=== PATIENT | female | born 1970 | race Caucasian/White ===

== ENCOUNTER 2017-11-12 17:21 | Emergency (ER) | payer OTHER ==
[~2017-11-12] VITALS: Ht 160 cm; Wt 56.7 kg
[2017-11-12] MEDS ORDERED: LASIX20 MG (17:28)
[2017-11-12] MEDS ORDERED: HYZAAR 50-12.51 EACH (17:28)
== END 2017-11-12 19:36 | disposition home or self-care (01) ==
LOC: ER 17:21
DX: T78.49XA Other allergy, initial encounter (principal); R21 Rash and other nonspecific skin eruption

== ENCOUNTER 2020-03-31 08:48 | Outpatient (CLI) | payer OTHER ==
[~2020-03-31 08:48] MED LIST: HYZAAR 50-12.51 EACH; LASIX20 MG
== END 2020-03-31 09:37 | disposition home or self-care (01) ==
LOC: SONOGRAMA 08:48
PROVIDERS: ATTEND Pathology Anatomic Pathology & Clinical Pathology
DX: E04.1 Nontoxic single thyroid nodule (principal)

== ENCOUNTER 2022-12-29 09:04 | Emergency (ER) | payer OTHER ==
[~2022-12-29] VITALS: Ht 160 cm; Wt 55.8 kg
== END 2022-12-29 09:59 | disposition home or self-care (01) ==
LOC: ER 09:04
DX: S90.122A Contusion of left lesser toe(s) without damage to nail, initial encounter (principal); X58.XXXA Exposure to other specified factors, initial encounter; Y93.89 Activity, other specified; Y92.832 Beach as the place of occurrence of the external cause; Y99.9 Unspecified external cause status; I10 Essential (primary) hypertension; Z88.8 Allergy status to other drugs, medicaments and biological substances

== ENCOUNTER 2025-04-15 12:40 | Emergency (ER) | payer OTHER ==
[~2025-04-15] VITALS: Ht 160 cm; Wt 55.3 kg
[2025-04-15] MEDS ORDERED: DEXAMETHASONE SODIUM PHOSPHATE 4 MG/ML VIAL IM ONE (15:30)
[2025-04-15] MEDS ORDERED: ACETAMINOPHEN 500 MG GEL..CAP PO ONE (15:30)
[2025-04-15] MEDS ORDERED: ORPHENADRINE CITRATE 30 MG/ML AMPUL IM ONE (15:30)
[2025-04-15] MEDS ORDERED: MEDROLPACK PO (18:15)
[2025-04-15] MEDS ORDERED: NORFLEX100MG PO (18:15)
== END 2025-04-15 19:46 ==
LOC: ER 12:41
DX: M62.838 Other muscle spasm (principal); I10 Essential (primary) hypertension; E03.9 Hypothyroidism, unspecified; Z88.8 Allergy status to other drugs, medicaments and biological substances